=== PATIENT | female | born 2000 ===

== ENCOUNTER 2018-05-27 09:56 | Outpatient (CLI) | payer OTHER ==
--- NOTE | 2018-05-27 11:59 | ULT ---
SONOGRAM ABDOMEN COMPLETE: HISTORY: Upper abdomen pain. FINDINGS: The gallbladder has a normal appearance without evidence of stones. The common duct is 0.3 cm. Live r unremarkable without focal mass or intrahepatic biliary dilatation. No free fluid. The spleen, ki dneys, and visualized portions of the abdominal aorta, IVC, and pancreas have a normal appearance. IMPRESSION: Normal abdominal sonogram. POS: [facility]
== END 2018-05-27 09:57 | disposition home or self-care (01) ==
LOC: BICULT 09:56
PROVIDERS: ATTEND Internal Medicine Gastroenterology
DX: K62.5 Hemorrhage of anus and rectum (principal); R10.13 Epigastric pain
CPT/HCPCS: 76700